=== PATIENT | male | born 1950 | race Caucasian/White ===

== ENCOUNTER → 2017-09-28 11:33 | Outpatient (CLI) | payer BC, SELFPAY ==
[2017-09-28 12:00] VITALS: PULSE 63; PULSE 64
== END ==
PROVIDERS: Family Provider Family Medicine; PCP Family Medicine; Visit Provider Physician Assistant
DX: R06.02 Shortness of breath (principal)
CPT/HCPCS: 94060; 94640

== ENCOUNTER → 2017-11-12 10:10 | Outpatient (POV) | payer BC, SELFPAY | PROVIDERS: Family Provider Family Medicine; PCP Family Medicine; Visit Provider Nurse Practitioner Acute Care | DX: Z00.00 Encounter for general adult medical examination without abnormal findings (principal) ==

== ENCOUNTER → 2017-11-21 15:42 | Outpatient (CLI) | payer BC, SELFPAY | PROVIDERS: PCP Family Medicine; Visit Provider Nurse Practitioner | DX: I10 Essential (primary) hypertension (principal) | CPT/HCPCS: 93005 ==

== ENCOUNTER → 2018-03-11 15:44 | Outpatient (POV) | payer BC, SELFPAY | PROVIDERS: Visit Provider Nurse Practitioner Acute Care | DX: Z00.00 Encounter for general adult medical examination without abnormal findings (principal) ==

== ENCOUNTER → 2018-04-22 10:11 | Outpatient (POV) | payer BC, SELFPAY | PROVIDERS: Visit Provider Nurse Practitioner Acute Care | DX: Z00.00 Encounter for general adult medical examination without abnormal findings (principal) ==

== ENCOUNTER → 2018-08-14 15:45 | Outpatient (CLI) | payer BC, SELFPAY ==
--- NOTE | 2018-08-14 15:50 | XR_ITS ---
XR knee RT 3V HISTORY: ITS.REASON: BURSITIS,PERSISTENT PAIN ORDERING PHYSICIAN: Collin Bailon MD PATIENT AGE: 67 years COMPARISON: None FINDINGS: No fracture or dislocation. No lytic or blastic change. Normal mineralization. No significant arthritic changes evident. No other significant findings IMPRESSION: Negative Knee
== END ==
PROVIDERS: PCP Family Medicine; Visit Provider Family Medicine
DX: M70.51 Other bursitis of knee, right knee (principal); M25.561 Pain in right knee
CPT/HCPCS: 73562

== ENCOUNTER → 2018-09-17 16:07 | Outpatient (CLI) | payer BC, SELFPAY ==
--- NOTE | 2018-09-17 16:16 | XR_ITS ---
XR knee RT 4V HISTORY: ITS.REASON: knee pain ORDERING PHYSICIAN: Alisia Whiting MD PATIENT AGE: 67 years COMPARISON: None FINDINGS: Weightbearing view shows slight decrease in the joint space medially. This could be seen with early osteoarthritis. No spurring or osteosclerosis. There is sclerosis of the right aspect of the patella anteriorly nonspecific. IMPRESSION: 1. No acute finding. 2. Slight decrease in joint space medially which may be seen with early osteoarthritis. 3. Sclerotic density of the lateral aspect of the patella anteriorly as seen on the sunrise view nonspecific
== END ==
PROVIDERS: PCP Family Medicine; Visit Provider Orthopaedic Surgery
DX: M25.561 Pain in right knee (principal)
CPT/HCPCS: 73564

== ENCOUNTER → 2018-09-20 14:19 | Outpatient (CLI) | payer BC, SELFPAY ==
--- NOTE | 2018-09-20 14:38 | MR_ITS ---
MR knee RT wo con HISTORY: ITS.REASON: right knee pain ORDERING PHYSICIAN: Alisia Whiting MD PATIENT AGE: 67 years Comparison: None TECHNIQUE: Standard multiplanar multiecho sequences are performed without contrast. FINDINGS: Alignment, joint spaces and signal from the marrow elements are normal except mild medial epiphyseal increased T2 signal suggesting a bone bruise at the proximal medial tibia. There is also a subtle subchondral rounded cystic focus (a degenerative cyst at the medial tibia. Articular cartilage areas are intact except there is a shallow focal defect involving the articular cartilage at the medial facet of the patella. The retinacular areas are intact. The anterior and posterior cruciate ligaments and the lateral capsular complex are intact. There are subtle hazy T2 signal medial to the MCL which is otherwise intact. There is evidence of linear increased T2 signal involving the inferior articular surface at the middle one third of the posterior horn of the medial meniscus and there is also truncated defect at the inner tip of the body of the medial meniscus. There is some thickening and increased intermediate signal involving the quadriceps tendon. The patellar tendon appears intact. There is some increased T2 signal within the anterior soft tissues at the level of the patellar tendon. There is a linear focus of T2 signal measuring 6.0 cm in length between the gastrocnemius and semimembranosus tendons. IMPRESSION: Complex tear which has a linear component at the inferior articular surface of the posterior horn and a truncated radial component of the tear involving the body of the medial meniscus. Strain of the MCL without tear. Probable quadriceps tendinosis. Edema anterior to the patellar tendon. Small popliteal cyst. Bone bruise of the proximal medial tibia. Focal small subtle grade III chondromalacia area involving the cartilage of the medial patellar facet.
== END ==
PROVIDERS: PCP Family Medicine; Visit Provider Orthopaedic Surgery
DX: M25.561 Pain in right knee (principal)
CPT/HCPCS: 73721

== ENCOUNTER → 2019-01-14 14:33 | Outpatient (CLI) | payer MEDICARE, OTHER, SELFPAY ==
--- NOTE | 2019-01-14 14:39 | US_ITS ---
PROCEDURE: US SOFT TISSUE HEAD AND NECK CLINICAL INDICATION: PHARYNGITIS Sore throat. Patient feels something in throat COMPARISON: No exams were available for comparison FINDINGS: The parotid and submandibular glands have an unremarkable appearance. There are small nodes in the neck bilaterally. Definite location not specified. Largest node on the right is 2.7 x 0.7 cm. Largest demonstrated node on the left is 1.5 by 0.6 cm. The right lobe of the thyroid gland is 3.7 x 1.3 x 2.4 cm and contains an 8 x 4 mm hypoechoic nodule centrally. The left lobe is 4.4 x 1.8 x 1.9 cm with an ill-defined nodule in the lower pole at 12 x 12 mm. This does show some increased blood flow. No fluid collections are evident. IMPRESSION: 1. Small bilateral cervical lymph nodes. These may be door thorough evaluated with CT if clinically desired 2. Indeterminate 12 mm nodule of the left lobe of the thyroid gland. Recommend six-month follow-up to confirm short-term stability Dictated by: Hector Vega MD 01/14/2019 19:00 Electronically signed by Hector Vega MD in [place] 01/14/2019 19:00
== END ==
PROVIDERS: PCP Family Medicine; Visit Provider Family Medicine
DX: J02.9 Acute pharyngitis, unspecified (principal); E04.2 Nontoxic multinodular goiter
CPT/HCPCS: 76536

== ENCOUNTER → 2019-05-19 09:36 | Outpatient (POV) | payer MEDICARE, OTHER, SELFPAY | PROVIDERS: PCP Family Medicine; Visit Provider Nurse Practitioner Family | DX: Z00.00 Encounter for general adult medical examination without abnormal findings (principal) ==

== ENCOUNTER → 2022-05-01 12:25 | Outpatient (CLI) | payer MEDICARE, OTHER, SELFPAY ==
[2022-05-01 19:33] LABS: Alanine Aminotransferase 35 U/L (12-78); Albumin Level 4.4 g/dl (3.5-5.0); Albumin/Globulin Ratio 1.6 (1.1-1.8); Alkaline Phosphatase 46 U/L (38-126); Anion Gap 11.5 mEq/L (5-15); Aspartate Amino Transferase 36 U/L (17-59); Basophils # 0.1 K/mm3 (0-0.2); Basophils % 0.8 % (0.1-2.0); Bilirubin,Total 1.6 mg/dl (0.2-1.3); Blood Urea Nitrogen 19 mg/dl (9-20); Calcium 9.2 mg/dl (8.4-10.2); Carbon Dioxide 27 mmol/L (22.0-30.0); Chloride 105 mmol/L (98-107); Chol/HDL Ratio 5.8 (1-3.5); Cholesterol 207 mg/dl (140-200); Eosinophils # 0.2 K/mm3 (0.0-0.4); Estimated Glomerular Filt Rate 74 ml/min (>60); GFR (African American) 90 ML/MIN (>60); Globulin 2.7 g/dL (1.3-3.2); Glucose 129 mg/dl (74-100); HDL Cholesterol 36 mg/dl (40-60); Hematocrit 47.3 % (42.0-52.0); Hemoglobin 15.4 g/dL (14.1-18.0); Lymphocytes # 1.8 K/mm3 (0.7-4.5); Mean Corpuscular HGB Conc 32.7 g/dL (31.8-35.4); Mean Corpuscular Hemoglobin 27.9 pg (27.0-31.2); Mean Corpuscular Volume 85.5 fl (80-94); Mean Platelet Volume 11.2 fl (7.4-10.4); Monocytes # 0.4 K/mm3 (0.1-1.0); Monocytes % 5.7 % (1.7-9.3); Neutrophils # 4.6 K/mm3 (1.8-7.8); Neutrophils % 65.5 % (37.0-80.0); Platelet Count 265 K/mm3 (142-424); Potassium 4.5 mmoL/L (3.5-5.1); Red Blood Count 5.53 M/mm3 (4.60-6.20); Red Cell Distribution Width 13.6 % (11.5-17.5); Sodium 139 mmol/L (136-145); Total Protein,Serum 7.1 g/dl (6.3-8.2); Triglycerides 180 mg/dl (30-150); VLDL Cholesterol 36 mg/dL (0-40); White Blood Count 7.1 K/mm3 (4.8-10.8)
[2022-05-01 19:43] LABS: Direct LDL Cholesterol 128.05 mg/dL (100-129)
[2022-05-01 20:03] LABS: Prostate Specific Ag Screen 0.6 ng/ml (0.0-4.0); Thyroid Stimulating Hormone 0.63 uIU/mL (0.465-4.68)
== END ==
PROVIDERS: PCP Nurse Practitioner; Visit Provider Nurse Practitioner
DX: E78.5 Hyperlipidemia, unspecified (principal); I10 Essential (primary) hypertension; Z12.5 Encounter for screening for malignant neoplasm of prostate; H66.91 Otitis media, unspecified, right ear
CPT/HCPCS: 80053; 80061; 84443; 85025; G0103

== ENCOUNTER → 2022-09-26 19:14 | Outpatient (CLI) | payer MEDICARE, OTHER, SELFPAY ==
[2022-09-26 20:09] LABS: Basophils % 0.6 % (0.1-2.0); Eosinophils # 0.3 K/mm3 (0.0-0.4); Eosinophils % 4.3 % (0.1-12.0); Hematocrit 47.5 % (42.0-52.0); Lymphocytes # 1.7 K/mm3 (0.7-4.5); Lymphocytes % 26.3 % (10-50); Mean Corpuscular HGB Conc 31.6 g/dL (31.8-35.4); Mean Corpuscular Hemoglobin 27.7 pg (27.0-31.2); Mean Corpuscular Volume 87.7 fl (80-94); Mean Platelet Volume 11.5 fl (7.4-10.4); Monocytes # 0.4 K/mm3 (0.1-1.0); Monocytes % 5.8 % (1.7-9.3); Neutrophils # 4.1 K/mm3 (1.8-7.8); Platelet Count 206 K/mm3 (142-424); Red Blood Count 5.42 M/mm3 (4.60-6.20); Red Cell Distribution Width 14.1 % (11.5-17.5); White Blood Count 6.6 K/mm3 (4.8-10.8)
[2022-09-26 20:16] LABS: Alanine Aminotransferase 39 U/L (12-78); Albumin Level 4.3 g/dl (3.5-5.0); Albumin/Globulin Ratio 1.5 (1.1-1.8); Alkaline Phosphatase 50 U/L (38-126); Anion Gap 16.4 mEq/L (5-15); Aspartate Amino Transferase 44 U/L (17-59); Bilirubin,Total 1.9 mg/dl (0.2-1.3); Blood Urea Nitrogen 19 mg/dl (9-20); Calcium 9.1 mg/dl (8.4-10.2); Carbon Dioxide 28 mmol/L (22.0-30.0); Chloride 101 mmol/L (98-107); Chol/HDL Ratio 6.1 (1-3.5); Cholesterol 218 mg/dl (140-200); Estimated Glomerular Filt Rate 66 ml/min (>60); GFR (African American) 80 ML/MIN (>60); Globulin 2.9 g/dL (1.3-3.2); Glucose 136 mg/dl (74-100); HDL Cholesterol 36 mg/dl (40-60); Potassium 4.4 mmoL/L (3.5-5.1); Sodium 141 mmol/L (136-145); Total Protein,Serum 7.2 g/dl (6.3-8.2); Triglycerides 178 mg/dl (30-150); VLDL Cholesterol 36 mg/dL (0-40)
[2022-09-26 20:47] LABS: Microalbumin/Creatinine Ratio 5.9; Thyroid Stimulating Hormone 1.02 uIU/mL (0.465-4.68)
[2022-09-26 20:48] LABS: Creatinine,Urine Random 291 mg/dL (Not Estab.)
== END ==
PROVIDERS: PCP Nurse Practitioner; Visit Provider Nurse Practitioner
DX: E78.5 Hyperlipidemia, unspecified (principal); I10 Essential (primary) hypertension; K21.9 Gastro-esophageal reflux disease without esophagitis; Z12.5 Encounter for screening for malignant neoplasm of prostate; R07.9 Chest pain, unspecified
CPT/HCPCS: 80053; 80061; 82043; 82570; 84443; 85025

== ENCOUNTER → 2022-11-17 23:36 | Outpatient (CLI) | payer MEDICARE, OTHER, SELFPAY ==
[2022-11-17 19:36] LABS: Hemoglobin A1C 6.9 % (4.0-6.0)
[2022-11-17 19:38] LABS: Alanine Aminotransferase 34 U/L (12-78); Albumin Level 4.4 g/dl (3.5-5.0); Alkaline Phosphatase 53 U/L (38-126); Aspartate Amino Transferase 35 U/L (17-59); Bilirubin,Direct 0.1 mg/dl (0.0-0.4); Bilirubin,Indirect 1.2 mg/dL (0.0-0.9); Bilirubin,Total 1.3 mg/dl (0.2-1.3); Bilirubin,Unconjugated 1.2 mg/dL (0.0-1.1); Total Protein,Serum 7.4 g/dl (6.3-8.2)
== END ==
PROVIDERS: PCP Nurse Practitioner; Visit Provider Nurse Practitioner
DX: E80.6 Other disorders of bilirubin metabolism (principal); R73.01 Impaired fasting glucose
CPT/HCPCS: 80076; 83036

== ENCOUNTER 2023-02-21 09:40 | Emergency (ER) | payer MEDICARE, OTHER, SELFPAY ==
[2023-02-21 09:41] VITALS: BP 150/84; PULSE 97; RESP 18; TEMP 36.8; O2SAT 97; BMI 37.2
--- NOTE | 2023-02-21 10:07 | EXP.UTC ---
Discharge Plan Disposition Patient Disposition: Home, Self-Care Condition: Good Prescriptions Prescriptions: New doxycycline hyclate [doxycycline hyclate] 100 mg capsule 100 mg PO Q12 10 Days Qty: 20 0RF mupirocin 2 % ointment 1 applic topical TID 7 Days Qty: 15 0RF No Action lisinopril 10 mg tablet 10 mg PO DAILY Qty: 90 1RF metoprolol succinate 100 mg tablet extended release 24 hr 100 mg PO DAILY Qty: 90 1RF omeprazole 40 mg capsule,delayed release(DR/EC) 40 mg PO DAILY Qty: 90 3RF oxybutynin chloride 10 mg tablet extended release 24hr 10 mg PO DAILY Qty: 90 1RF Referrals Follow up/Referrals: Maribel Crawley APRN [Primary Care Provider] - See instructions Activity Restrictions/Add. Instructions Additional Instructions/Restrictions: Keep the wound clean and dry. Keep a dressing on it if you are going to be getting it dirty. Watch the wound for signs of worsening infection, such as redness, swelling, drainage, fever. etc. Follow up with your regular doctor. GO TO THE ER FOR ANY WORSENING SYMPTOMS OR CONCERNS. Clinical Impressions Clinical Impression: Tick bite of back wall of thorax Instructions Patient Instructions: Doxycycline, Mupirocin, Protect Yourself from Tickborne Illnesses Discharge ED Provider: Joselito Alston [facility] HPI General Stated complaint: TICK BITE ON RIGHT RIB CAGE Time Seen by Provider: 02/21/23 10:05 History of Present Illness Provider Complaint: He states that he found a tick embedded into his right chest wall early this morning. He removed the tick, but the site has redness around it. So, he came in to have it checked. Related Data Previous Rx's Medication Instructions Recorded lisinopril 10 mg tablet 10 mg PO DAILY blood pressure #90 09/25/22 tabs metoprolol succinate 100 mg 100 mg PO DAILY bp #90 tabs 09/25/22 tablet,extended release 24 hr omeprazole 40 mg capsule,delayed 40 mg PO DAILY #90 caps 09/25/22 release oxybutynin chloride 10 mg 10 mg PO DAILY #90 tabs 09/25/22 tablet,extended release 24 hr doxycycline hyclate 100 mg capsule 100 mg PO Q12 10 days #20 caps 02/21/23 mupirocin 2 % topical ointment 1 applic topical TID 7 days #15 02/21/23 grams Allergies Allergy/AdvReac Type Severity Reaction Status Date / Time No Known Drug Allergies Allergy Unknown Verified 11/17/22 08:28 [NKDA] [facility] Disclaimer: The information contained in this section may have been updated after the patient was seen, as this information can be updated by other users. Medical History (Updated 02/21/23 @ 10:14 by Joselito Alston APRN) Essential hypertension Family history of ASCVD GERD (gastroesophageal reflux disease) Hyperbilirubinemia Hyperlipidemia IBS (irritable bowel syndrome) IFG (impaired fasting glucose) Left acute otitis media OAB (overactive bladder) Social History Smoking Status: Never smoker alcohol intake: never substance use type: denies use current occupational status: employed Travel in the last 8 weeks: None caffeine: Yes ROS Obtained: Yes All systems reviewed & no additional complaints except as documented Constitutional Constitutional: Denies chills and Denies fever(s) Eyes Eyes: Denies eye discharge ENT Ears, Nose, Mouth, and Throat: Denies dizziness, Denies otalgia and Denies sore throat Cardiovascular Cardiovascular: Denies chest pain Respiratory Respiratory: Denies shortness of breath, Denies chest congestion, Denies cough, Denies stridor and Denies wheezing Gastrointestinal Gastrointestingal: Denies nausea or vomiting Musculoskeletal Musculoskeletal: Reports system reviewed and no additional complaints, except as documented and Denies arthralgias Integumentary/Breasts Skin/Breast: Reports as per HPI Neurologic Neurologic: Denies dizziness and Denies paresthesias Allergic/Immunologic Allergic/Immunologic: Denies wheezing
[2023-02-21 10:15] VITALS: BP 150/84; PULSE 60; RESP 16; TEMP 36.8; O2SAT 97
== END 2023-02-21 10:17 | disposition home or self-care (01) ==
PROVIDERS: Emergency Provider Nurse Practitioner Family; PCP Nurse Practitioner
DX: S20.361A Insect bite (nonvenomous) of right front wall of thorax, initial encounter (principal); I10 Essential (primary) hypertension; E78.5 Hyperlipidemia, unspecified; K21.9 Gastro-esophageal reflux disease without esophagitis; W57.XXXA Bitten or stung by nonvenomous insect and other nonvenomous arthropods, initial encounter
CPT/HCPCS: 99204; 99212; G0463

== ENCOUNTER → 2023-03-20 23:13 | Outpatient (CLI) | payer MEDICARE, OTHER, SELFPAY ==
[2023-03-20 18:46] LABS: Influenza A, PCR Not Detected (NotDetected); Influenza B, PCR Not Detected (NotDetected)
[2023-03-20 19:56] LABS: Coronavirus 19, PCR Detected (NotDetected)
== END ==
PROVIDERS: PCP Nurse Practitioner; Visit Provider Nurse Practitioner
DX: J06.9 Acute upper respiratory infection, unspecified (principal); U07.1 COVID-19
CPT/HCPCS: 87636

== ENCOUNTER 2023-10-24 10:15 | Outpatient (CLI) | payer MEDICARE, OTHER, SELFPAY ==
[2023-10-24 18:30] LABS: Basophils # 0.1 K/mm3 (0-0.2); Basophils % 0.8 % (0.1-2.0); Eosinophils # 0.3 K/mm3 (0.0-0.4); Eosinophils % 3.7 % (0.1-12.0); Hematocrit 45.6 % (42.0-52.0); Hemoglobin 14.8 g/dL (14.1-18.0); Lymphocytes # 1.6 K/mm3 (0.7-4.5); Lymphocytes % 23.3 % (10-50); Mean Corpuscular HGB Conc 32.5 g/dL (31.8-35.4); Mean Corpuscular Hemoglobin 28.9 pg (27.0-31.2); Mean Platelet Volume 11.4 fl (7.4-10.4); Monocytes # 0.4 K/mm3 (0.1-1.0); Monocytes % 6.3 % (1.7-9.3); Neutrophils # 4.4 K/mm3 (1.8-7.8); Neutrophils % 65.9 % (37.0-80.0); Platelet Count 211 K/mm3 (142-424); Red Blood Count 5.12 M/mm3 (4.60-6.20); White Blood Count 6.7 K/mm3 (4.8-10.8)
[2023-10-24 19:00] LABS: Alanine Aminotransferase 33 U/L (12-78); Albumin Level 4.1 g/dl (3.5-5.0); Albumin/Globulin Ratio 1.5 (1.1-1.8); Alkaline Phosphatase 46 U/L (38-126); Anion Gap 13.1 mEq/L (5-15); Aspartate Amino Transferase 32 U/L (17-59); Bilirubin,Total 1.5 mg/dl (0.2-1.3); Blood Urea Nitrogen 20 mg/dl (9-20); Calcium 9.6 mg/dl (8.4-10.2); Carbon Dioxide 25 mmol/L (22.0-30.0); Chloride 105 mmol/L (98-107); Chol/HDL Ratio 5.4 (1-3.5); Cholesterol 217 mg/dl (140-200); Estimated Glomerular Filt Rate 60 ml/min (>60); GFR (African American) 72 ML/MIN (>60); Globulin 2.8 g/dL (1.3-3.2); Glucose 137 mg/dl (74-100); HDL Cholesterol 40 mg/dl (40-60); Potassium 4.1 mmoL/L (3.5-5.1); Sodium 139 mmol/L (136-145); Total Protein,Serum 6.9 g/dl (6.3-8.2); Triglycerides 147 mg/dl (30-150); VLDL Cholesterol 29 mg/dL (0-40)
[2023-10-24 19:11] LABS: Direct LDL Cholesterol 133.13 mg/dL (100-129)
[2023-10-24 19:14] LABS: Creatinine,Urine Random 296 mg/dL (Not Estab.)
[2023-10-24 19:17] LABS: Microalbumin/Creatinine Ratio 5.9
[2023-10-24 19:30] LABS: Prostate Specific Ag Screen 0.6 ng/ml (0.0-4.0)
[2023-10-24 19:49] LABS: Vitamin B12 444 pg/mL (239-931)
[2023-10-24 20:13] LABS: Hemoglobin A1C 6.7 % (4.0-6.0)
== END 2023-10-24 23:59 | disposition home or self-care (01) ==
LOC: LAB.DROPOF 10-25 10:16
PROVIDERS: PCP Nurse Practitioner; Visit Provider Nurse Practitioner
DX: I10 Essential (primary) hypertension (principal); E78.5 Hyperlipidemia, unspecified; K21.9 Gastro-esophageal reflux disease without esophagitis; E11.9 Type 2 diabetes mellitus without complications; Z12.5 Encounter for screening for malignant neoplasm of prostate
CPT/HCPCS: 80053; 80061; 82043; 82570; 82607; 83036; 84443; 85025; G0103

== ENCOUNTER → 2023-11-19 07:14 | Outpatient (CLI) | payer MEDICARE, OTHER, SELFPAY | LOC: SL 07:15 | PROVIDERS: PCP Nurse Practitioner; Visit Provider Nurse Practitioner | DX: G47.33 Obstructive sleep apnea (adult) (pediatric); G47.36 Sleep related hypoventilation in conditions classified elsewhere | CPT/HCPCS: G0399 ==

== ENCOUNTER 2024-10-27 16:04 | Outpatient (CLI) | payer MEDICARE, OTHER, SELFPAY ==
--- OUTSIDE RECORDS SUMMARY | 2024-10-27 16:08 | XMS_ITS | Clinical Summary ---
Author Organization [facility] [place] Address [address] [facility] [address] [place] [address] Phone Care Team Providers Care Broodmare Foreman Name Role Phone Unavailable Primary Care Provider Unavailabl e Allergies No known active allergies Medications ibuprofen (ADVIL;MOTRIN) 100 mg Oral Tablet Take 200 mg by mouth every 6 hours as needed for Fever. Active pantoprazole (PROTONIX) 40 mg Oral Tablet, Delayed Release (E.C.) Take 40 mg by mouth daily. Active albuterol (PROVENTIL HFA;VENTOLIN HFA) 90 mcg/actuation Inhl HFA Aerosol Inhaler Inhale 2 Puffs into the lungs every 6 hours as needed for Wheezing. Active fluticasone (FLONASE) 50 mcg/actuation Nasl [place], Suspension 2 Sprays by Nasal route daily. Active metoprolol succinate ER (TOPROL-XL) 100 mg Oral Tablet Sustained Release 24 hr Take 100 mg by mouth daily. 10/17/2022 Active lisinopriL (PRINIVIL;ZESTRI L) 10 mg Oral Tablet Take 10 mg by mouth daily. Active omeprazole (PRILOSEC) 40 mg Oral Capsule, Delayed Release(E.C.) Take 40 mg by mouth daily. 10/25/2022 Active oxybutynin (DITROPAN-XL) 10 mg Oral Tablet Extended Rel 24 hr Take 10 mg by mouth daily. Active Active Problems Problem Noted Date Diagnosed Date Primary hypertension 11/20/2022 Medical History Medical History Date Comments Bronchitis, chronic (HCC) Family History Medical History Relation Name Comments Emphysema Brother Heart Disease Brother Unspecfied arr hythmia Coronary Art Dis Father High Cholesterol Father Cancer Mother Dementia Mother Heart Disease Mother Valvular disea se Relation Name Status Comments Brother Father Mother Social History Tobacco Use Types Packs/Day Years Used Date Smoking Tobacco: Never Smokeless Tobacco: Never Tobacco Cessation:Counseling Given: Not Answered Sex and Gender Information Value Date Recorded Sex Assigned at Not on file Legal Sex Male 8:53 AM EDT Gender Identity Not on file Sexual Orientation Not on file Obstetrics History Last Filed Vital Signs Vital Sign Reading Time Taken Comments Blood Pressure 116/72 11/20/2022 12:45 PM EDT Pulse 52 11/20/2022 12:45 PM EDT Temperature - - Respiratory Rate - - Oxygen Saturation 96% 11/26/2017 9:52 AM EDT ra2 rest Inhaled Oxygen Concentration - - Weight 132.8 kg (292 lb 12.8 oz) 2022 12:45 PM EDT Height 193 cm (6' 4 ) 11/20/2022 12:45 PM EDT Body Mass Index 35.64 11/20/2022 12:45 PM EDT Plan of Treatment Health Maintenance Due Date Last Done Comments Wellness Exam Medicare 12/09/1953 Hepatitis C Screening 1970 Cologuard 1997 Colon Cancer Screening 1997 Colonoscopy 1997 FIT 1997 Sigmoidoscopy 1997 Virtual Colonography 1997 Pneumococcal Vaccine 50+ (1 of 1 - PCV) 2002 Zoster (1 of 2) 2002 COVID-19 Vaccine (3 - 2023-2 5 season) 2023 01/20/2022, 02/18/2021 Influenza Vaccine (#1) 2024 DTaP/TDaP/Td (2 - Td or Tdap) 08/26/2031 08/25/2021 Hepatitis B Vaccine Aged Out No longe r eligible based on patient's age to complete this topic Meningococcal B Vaccine Aged Out No l onger eligible based on patient's age to complete this topic Insurance MEDICARE [place] PART A AND B [employer] INS[employer]ANCE [employer] MEDICARE [place] PART A AND B * Guarantor: Betzaida Welch Account Type Relation to Patient Date of Phone Billing Address [place] Personal Family Self
[2024-10-27 16:19] LABS: Hematocrit 45.4 % (42.0-52.0); Hemoglobin 14.5 g/dL (14.1-18.0); Immature Granulocytes % 0.3 %; Mean Corpuscular HGB Conc 31.9 g/dL (31.8-35.4); Mean Corpuscular Hemoglobin 27.9 pg (27.0-31.2); Mean Corpuscular Volume 87.3 fl (80-94); Nucleated Red Blood Cells % 0 %; Platelet Count 179 K/mm3 (142-424); Red Blood Count 5.20 M/mm3 (4.60-6.20); Red Cell Distribution Width-SD 43.0 fL; White Blood Count 7.1 K/mm3 (4.8-10.8)
[2024-10-27 17:50] LABS: Hepatitis C Ab Qual. W/ RFX NEGATIVE (Negative)
[2024-10-27 18:51] LABS: Alanine Aminotransferase 25 U/L (12-78); Albumin Level 4.5 g/dl (3.5-5.0); Albumin/Globulin Ratio 1.8 (1.1-1.8); Alkaline Phosphatase 44 U/L (38-126); Anion Gap 13.4 mEq/L (5-15); Aspartate Amino Transferase 30 U/L (17-59); Bilirubin,Total 1.9 mg/dl (0.2-1.3); Blood Urea Nitrogen 19 mg/dl (9-20); Calcium 9.9 mg/dl (8.4-10.2); Carbon Dioxide 27 mmol/L (22.0-30.0); Chloride 102 mmol/L (98-107); Cholesterol 210 mg/dl (140-200); Creatinine,Serum 1.20 mg/dl (0.66-1.25); Estimated Glomerular Filt Rate 60 ml/min (>60); GFR (African American) 72 ML/MIN (>60); Globulin 2.5 g/dL (1.3-3.2); Glucose 126 mg/dl (74-100); HDL Cholesterol 39 mg/dl (40-60); Potassium 4.4 mmoL/L (3.5-5.1); Sodium 138 mmol/L (136-145); Total Protein,Serum 7.0 g/dl (6.3-8.2); Triglycerides 143 mg/dl (30-150)
[2024-10-27 19:22] LABS: Thyroid Stimulating Hormone 0.99 uIU/mL (0.465-4.68)
[2024-10-27 19:41] LABS: Vitamin B12 340 pg/mL (239-931)
[2024-10-27 21:47] LABS: Hemoglobin A1C 6.5 % (4.0-6.0)
== END 2024-10-27 23:59 | disposition home or self-care (01) ==
LOC: LAB 16:05
PROVIDERS: PCP Nurse Practitioner; Visit Provider Nurse Practitioner
DX: E78.5 Hyperlipidemia, unspecified (principal); E11.9 Type 2 diabetes mellitus without complications; I10 Essential (primary) hypertension; Z12.5 Encounter for screening for malignant neoplasm of prostate; Z11.59 Encounter for screening for other viral diseases
CPT/HCPCS: 80053; 80061; 80074; 82043; 82570; 82607; 83036; 84443; 85025; 87389; G0103

== ENCOUNTER 2024-10-28 09:15 | Outpatient (CLI) | payer MEDICARE, OTHER, SELFPAY ==
--- OUTSIDE RECORDS SUMMARY | 2024-10-28 09:19 | XMS_ITS | Clinical Summary ---
Author Organization [facility] [place] Address [address] [facility] [address] [place] [address] Phone Care Team Providers Care Authorization Coordinator Name Role Phone Unavailable Primary Care Provider [...] Wheezing. Active fluticasone (FLONASE) 50 mcg/actuation Nasl [place], Suspension 2 Sprays by Nasal route daily. [...] Insurance MEDICARE [place] PART A AND B [employer] INS[employer]ANCE [employer] MEDICARE [place] PART A AND B * Guarantor: Betzaida Welch Account Type Relation to Patient Date of Phone Billing Address [place] Personal Family Self
--- NOTE | 2024-10-28 09:30 | US_ITS ---
FINAL REPORT CLINICAL HISTORY: screen AAA COMPARISON: None FINDINGS: Sonographic images were obtained of the abdominal aorta. The abdominal aorta measures up to 2.6 cm in greatest dimensions. The common iliac arteries are within normal limits. IMPRESSION: No evidence of aortic aneurysm. Reviewed, Interpreted and Dictated by Sarah Lai MD Transcribed by Luisa Humphrey Authenticated and [facility]
== END 2024-10-28 23:59 | disposition home or self-care (01) ==
LOC: RAD 09:16
PROVIDERS: PCP Nurse Practitioner; Visit Provider Nurse Practitioner
DX: I71.40 Abdominal aortic aneurysm, without rupture, unspecified (principal)
CPT/HCPCS: 76706

== ENCOUNTER 2024-10-30 09:16 | Outpatient (CLI) | payer MEDICARE, OTHER, SELFPAY ==
--- OUTSIDE RECORDS SUMMARY | 2024-10-30 09:20 | XMS_ITS | Clinical Summary ---
Author Organization [facility] [place] Address [address] [facility] [address] [place] [address] Phone Care Team Providers Care Fisher Oyster Name Role Phone Unavailable Primary Care Provider [...] Wheezing. Active fluticasone (FLONASE) 50 mcg/actuation Nasl [place], Suspension 2 Sprays by Nasal route daily. [...] Insurance MEDICARE [place] PART A AND B [employer] INSURANCE COMPANY MED[place]ARE [place] PART A AND B * Guarantor: Betzaida Welch Account Type Relation to Patient Date of Phone Billing Address [place] Personal Family Self
--- NOTE | 2024-10-30 09:30 | US_ITS ---
FINAL REPORT TECHNIQUE: Sonographic images of the right upper quadrant were obtained. CLINICAL HISTORY: hyperbilirubinemia FINDINGS: PANCREAS: Obscured. LIVER: Fatty liver. No focal hepatic lesion. No intrahepatic biliary ductal dilatation. GALLBLADDER: Small gallstones. No gallbladder wall thickening or pericholecystic fluid. COMMON DUCT: 4 mm. Normal for age. RIGHT KIDNEY: The right kidney measures 11.6 cm. There is no hydronephrosis, mass, or stone. FREE FLUID: None. IMPRESSION: Fatty liver. Small gallstones. Reviewed, Interpreted and Dictated by Sarah Lai MD Transcribed by Any Remy Authenticated and [facility]
== END 2024-10-30 23:59 | disposition home or self-care (01) ==
LOC: RAD 09:16
PROVIDERS: PCP Nurse Practitioner; Visit Provider Nurse Practitioner
DX: K76.0 Fatty (change of) liver, not elsewhere classified (principal); K80.20 Calculus of gallbladder without cholecystitis without obstruction; E80.6 Other disorders of bilirubin metabolism
CPT/HCPCS: 76705

== ENCOUNTER 2024-11-25 14:13 | Outpatient (CLI) | payer MEDICARE, OTHER, SELFPAY ==
--- OUTSIDE RECORDS SUMMARY | 2024-11-25 14:29 | XMS_ITS | Clinical Summary ---
Author Organization [facility] [place] Address [address] [facility] [address] [place] [address] Phone Care Team Providers Care Contact Center Representative Name Role Phone Unavailable Primary Care Provider [...] Wheezing. Active fluticasone (FLONASE) 50 mcg/actuation Nasl [place], Suspension 2 Sprays by Nasal route daily. [...] Insurance MEDICARE [place] PART A AND B [employer] INSURANCE [employer] [place]ARE [place] PART [place] B * Guarantor: Betzaida Welch Account Type Relation to Patient Date of Phone Billing Address [place] Personal Family Self
--- NOTE | 2024-11-25 14:33 | ECG_ITS ---
APPROVED REPORT Exam: Resting ECG HR:50 bpm ECG Measurements Heart Rate 50 AXES KS 182 P 57 QRSd 91 QRS 44 QT 431 T 66 QTc 404 Conclusion SINUS BRADYCARDIA BORDERLINE ECG UNCONFIRMED REPORT Electronically signed by : Cem Chowdhury MD 11/26/2024 08:43:17
== END 2024-11-25 23:59 | disposition home or self-care (01) ==
LOC: RT 14:14
PROVIDERS: PCP Nurse Practitioner; Visit Provider Internal Medicine Gastroenterology
DX: R94.31 Abnormal electrocardiogram [ECG] [EKG] (principal); R00.1 Bradycardia, unspecified; R53.83 Other fatigue; R53.81 Other malaise
CPT/HCPCS: 93005

== ENCOUNTER 2024-12-23 15:19 | Outpatient (CLI) | payer MEDICARE, OTHER, SELFPAY ==
--- OUTSIDE RECORDS SUMMARY | 2024-12-23 15:23 | XMS_ITS | Clinical Summary ---
Author Organization [facility] [place] Address [address] [facility] [address] [place] [address] Phone Care Team Providers Care Engineering Designer Name Role Phone Unavailable Primary Care Provider [...] Wheezing. Active fluticasone (FLONASE) 50 mcg/actuation Nasl [place], Suspension 2 Sprays by Nasal route daily. [...] of 2) 2002 COVID-19 Vaccine (3 - 2024-2 6 season) 2024 01/20/2022, 02/18/2021 Influenza Vaccine (#1) 2024 DTaP/TDaP/Td (2 - Td or Tdap) 08/26/2031 08/25/2021 Hepatitis B Vaccine Aged Out No longe r eligible based on patient's age to complete this topic Meningococcal B Vaccine Aged Out No l onger eligible based on patient's age to complete this topic Insurance [place]ARE [place] PART A AND B [employer] INS[employer]ANCE COMPANY MEDICARE [place] PART A AND B * Guarantor: Betzaida Welch Account Type Relation to Patient Date of Phone Billing Address [place] Personal Family Self
== END 2024-12-23 23:59 | disposition home or self-care (01) ==
LOC: RT 15:20
PROVIDERS: PCP Nurse Practitioner; Visit Provider Nurse Practitioner
DX: I49.1 Atrial premature depolarization (principal); I49.3 Ventricular premature depolarization; I47.10 Supraventricular tachycardia, unspecified; R00.1 Bradycardia, unspecified; R94.31 Abnormal electrocardiogram [ECG] [EKG]
CPT/HCPCS: 93225; 93227

== ENCOUNTER 2025-01-05 10:21 | Outpatient (CLI) | payer MEDICARE, OTHER, SELFPAY ==
--- OUTSIDE RECORDS SUMMARY | 2025-01-05 10:24 | XMS_ITS | Clinical Summary ---
Author Organization [facility] [place] Address [address] [facility] [address] [place] [address] Phone Care Team Providers Care Cardiopulmonary Supervisor Name Role Phone Unavailable Primary Care Provider [...] Wheezing. Active fluticasone (FLONASE) 50 mcg/actuation Nasl [place], Suspension 2 Sprays by Nasal route daily. [...] on file Sexual Orientation Not on file Last Filed Vital Signs Vital Sign Reading [...] Insurance [place]ARE [place] PART A [place] B [employer] INSURANCE [place]ARE [place] PART A [place] B * Guarantor: Betzaida Welch Account Type Relation to Patient Date of Phone Billing Address [place] Personal Family Self
--- NOTE | 2025-01-05 10:30 | CA_ITS ---
APPROVED REPORT EXAM: Comprehensive 2D, Doppler, and color-flow Echocardiogram Exercise Planner: Devi Rashid RT(R) Ht: 6 ft 2 in Wt: 280lbs BSA: 2.51 BP: 140/82 mmHg Indications: murmur, hypertension, Diabetes, AAA 2D Dimensions Left Atrium 4.19 cm M: 3.0 - 4.0 LA Volume 33.80 mL LVOT 2.06 cm (M/F) 1.5-2.5 LA Volume Index 13.47 mL/m2 (M/F) 16-34 EF AP4 55.80 % GL Strain -21.5 % M-Mode Dimensions RVDd 2.87 cm (0.9-2.6) LVDd 5.37 cm (3.5-5.7) Ao Diam 2.85 cm (2.0-3.7) LVDs 4.01 cm (3.5-5.7) IVSd 0.89 cm (0.6-1.1) PWd 0.97 cm (0.6-1.1) EF (Teich) 49.50% FS 25.30% EDV (Teich) 139.50 mL ESV (Teich) 70.40 mL LV Diastology E Decel Time 286 (160-240 msec) E/A Ratio 0.7 MED E' 8.1 (>= 7 cm/sec) E'/MED E' Ratio 8.79 (<= 14) LAT E' 7.7 (>= 10 cm/sec) E/LAT E' Ratio 9.25 (<= 14) Mitral Valve MV E Max Nikita. 71.0 (40-130 cm/s) MV A Velocity 97.0 (40-130 cm/s) E/A Ratio 0.73 MV Decel. Time 286 (160-240 ms) Left Ventricle The left ventricle is normal size. Left ventricular systolic function is normal. The left ventricular ejection fraction is within the normal range. There is increased left ventricular wall thickness. There is normal LV segmental wall motion. Transmitral Doppler flow pattern suggests impaired LV relaxation. LVEF is 55%. Right Ventricle The right ventricle is mildly dilated. The right ventricular systolic function is normal. Atria The left atrium size is normal. The right atrium size is normal. There is no color Doppler evidence of interatrial shunt. Aortic Valve The aortic valve is mildly thickened. There is no hemodynamically significant aortic valvular stenosis. Trace aortic regurgitation is present. Mitral Valve The mitral valve is normal in structure. No evidence of mitral valve stenosis. Trace mitral regurgitation is present. Tricuspid Valve The tricuspid valve leaflets are thin and pliable. Mild tricuspid regurgitation. RVSP is 20-25 mmHg. Pulmonic Valve The pulmonary valve is grossly normal in structure. Trace pulmonic valve regurgitation is present. Great Vessels The aortic root is normal in size. The ascending aorta is not well visualized. IVC is normal in size and collapses >50% with inspiration. Pericardium There is no pericardial effusion. Other Information Study Quality: Fair Conclusion Normal biventricular systolic function. Mild RV dilation. Mild TR. Electronically signed by : Heydi Lynch MD 01/07/2025 22:50:51
== END 2025-01-05 23:59 | disposition home or self-care (01) ==
PROVIDERS: Specialist; PCP Nurse Practitioner; Visit Provider Physician Assistant
DX: I07.1 Rheumatic tricuspid insufficiency (principal); I11.9 Hypertensive heart disease without heart failure; K76.0 Fatty (change of) liver, not elsewhere classified; E80.4 Gilbert syndrome; E80.6 Other disorders of bilirubin metabolism; R25.1 Tremor, unspecified; E11.9 Type 2 diabetes mellitus without complications; I71.40 Abdominal aortic aneurysm, without rupture, unspecified
CPT/HCPCS: 36415; 82390; 93306